=== PATIENT | female | born 1955 | race Caucasian/White ===

== ENCOUNTER 2017-03-30 11:11 | Emergency (ER) | payer SELFPAY ==
[~2017-03-30] VITALS: Ht 162.6 cm; Wt 100.0 kg
[~2017-03-30 11:11] MED LIST: CIPRO XR500 MG PO; DOXYCYCL HYC100 MG PO; NAPROSYN500 MG PO
[2017-03-30] MEDS ORDERED: EC-NAPROSYN500 MG PO (13:15)
[2017-03-30] MEDS ORDERED: TRAMADOL HYDROC50 MG PO (13:15)
[2017-03-30 13:19] VITALS: BP 140/82
== END 2017-03-30 13:23 | disposition home or self-care (01) | DRG 554 ==
LOC: ED 11:11
DX: M17.11 Unilateral primary osteoarthritis, right knee (principal); F17.210 Nicotine dependence, cigarettes, uncomplicated

== ENCOUNTER 2019-01-07 20:34 | Emergency (ER) | payer SELFPAY ==
[~2019-01-07] VITALS: Ht 162.6 cm; Wt 108.0 kg
[~2019-01-07 20:34] MED LIST changes: +EC-NAPROSYN500 MG PO; +TRAMADOL HYDROC50 MG PO
[2019-01-07] MEDS ORDERED: CYCLOBENZAPR5 MG PO (20:46)
[2019-01-07] MEDS ORDERED: LISINOPRIL5 MG PO (20:46)
[2019-01-07] MEDS ORDERED: DICLOFENAC SODI75 MG PO (20:47)
[2019-01-07] MEDS ORDERED: PREDNISONE50 MG PO (22:52)
[2019-01-07 23:15] VITALS: BP 117/68
== END 2019-01-07 23:16 | disposition home or self-care (01) | DRG 554 ==
LOC: ED 20:34
DX: M17.0 Bilateral primary osteoarthritis of knee (principal); M47.816 Spondylosis without myelopathy or radiculopathy, lumbar region; I10 Essential (primary) hypertension; F17.210 Nicotine dependence, cigarettes, uncomplicated

== ENCOUNTER 2019-01-24 23:17 | Observation (INO) | payer SELFPAY ==
[~2019-01-24] VITALS: Ht 162.6 cm; Wt 101.0 kg
[~2019-01-24 23:17] MED LIST changes: +CYCLOBENZAPR5 MG PO; +DICLOFENAC SODI75 MG PO; +LISINOPRIL5 MG PO; +PREDNISONE50 MG PO
--- NOTE | 2019-01-24 23:20 | NUR ---
PT BROUGHT VIA EMS, TRANSFERED TO [facility] W/OUT INCIDENT. PT WAS SEEN HERE APPROX 2 WEEKS AGO FOR GENERAL WEAKNESS IN LOWER EXTREMITIES. PT HAS HX OF HIP AND KNEE DETERIORATION. PT STATES SHE IMPROVED WITH THE USE OF STEROIDS BUT HAS NOW COMPLETED THEM. PT DESCRIBES SLIPPING FROM W/C AT HOME WHILE ATTEMPTING TO TRANSFER TO [facility].
--- NOTE | 2019-01-24 23:40 | NUR ---
MD AT BEDSIDE FOR EVALUATION
--- NOTE | 2019-01-25 00:02 | NUR ---
PT IS ALERT ORIENTED /PWD. RESP EASY REG. C/O LEG WEAKNESS AND INABILITY TO MOVE LEFT LEG. POSITIVE PULSES BILAT. EXT WARM TO TOUCH. UNABLE TO MOVE LEFT LEG. C/O INTERMITTENT SPASMS/SHARP PAINS DOWN LEFT LEG LIKE A LIGHTNING BOLT.
[2019-01-25 00:05] LABS: HEMATOCRIT 39.8 % (37.0-47.0); HEMOGLOBIN 13.2 g/dl (12.0-16.0); IMMATURE GRANULOCYTES 0.4 % (0.0-5.0); MEAN CELL VOLUME 95.9 fL CALC (80.0-100.0); MEAN CORPUSCULAR HGB 31.8 pG CALC (26.0-32.0); MEAN CORPUSCULAR HGB CONC 33.2 g/L CALC (32.0-36.0); NEUT# 5.31 thou/uL (2.00-7.15); RED BLOOD COUNT 4.15 mill/uL (4.20-5.60); RED CELL DISTRI WIDTH 12.8 % (11.5-15.5)
[2019-01-25 00:17] LABS: ALBUMIN 3.9 g/dL (3.2-5.0); ALKALINE PHOSPHATASE 98 u/l (38-126); ANION GAP 13 (6-22 (CALC)); BILIRUBIN, TOTAL 0.6 mg/dL (0.0-1.4); BUN 29 mg/dL (8-23); BUN/CREATININE RATIO 29 (12-20 (CALC)); CARBON DIOXIDE 23 mmol/l (22-30); CHLORIDE 106 mmol/l (95-108); GFR 56 ML/MIN (>=60 (CALC)); GFR FOR AFR.AMER. > 60 ML/MIN (>=60 (CALC)); POTASSIUM 4.1 mmol/l (3.5-5.1); SGOT/AST 17 u/l (9-36); SODIUM 138 mmol/l (137-146); TOTAL PROTEIN 6.2 g/dL (6.3-8.2)
--- NOTE | 2019-01-25 01:37 | NUR ---
TO CT VIA [facility]
--- NOTE | 2019-01-25 02:06 | NUR ---
RETURNED FROM CT VIA [facility]
--- NOTE | 2019-01-25 02:59 | NUR ---
REPORT TO RUBIN KUNZ
--- NOTE | 2019-01-25 03:07 | NUR ---
TO FLOOR VIA [facility]. TRANSFERRED TO BED WITH EZ SLIDE.
[2019-01-25 03:15] VITALS: BP 136/77
--- NOTE | 2019-01-25 03:15 | NUR ---
RECEIVED REPORT FROM NURSE CAMILA, PATIENT TRANSPORTED VIA BED, SETTLED IN BED, PATIENT ON 2 PERSON ASSIST WITH TRANSFER R/T WEAKNESS, WITH SALINE LOCK G 18 ON LAC PATENT AND FLUSHES WELL, PATIENT ORIENTED TO ROOM AND CALL LIGHT SYSTEM.
--- NOTE | 2019-01-25 07:15 | NUR ---
REPORT RECEIVED FROM RUBIN KERN;PT RESTING IN SEMI FOWLERS POSITION;INTRODUCED SELF TO PT AND POC DISCUSSED;RESPIRATIONS EVEN AND UNLABORED ON RA;PT DENIES ANY CURRENT PAIN OR NEEDS;TELE MONITORING IN PLACE;PT ENCOURAGED TO CALL FOR ASSISTANCE IF NEEDED;FALL PRECAUTIONS IN PLACE WITH BED IN THE LOWEST POSITION AND CALL LIGHT IN REACH;WILL CONTINUE TO MONITOR
[2019-01-25 08:47] VITALS: BP 130/81
--- NOTE | 2019-01-25 08:50 | NUR ---
PT RESTING IN SUPINE POSITION,A&O X3;VS OBTAINED AND ASSESSMENT COMPLETED;PT DENIES ANY CURRENT PAIN OR DISCOMFORTS,PAIN SCALE AND REPORTING EDUCATED;RESPIRATIONS EVEN AND UNLABORED ON RA,DIMINISHED LUNG SOUNDS NOTED;ABDOMEN DISTENDED/SOFT ON PALPATION AND ACTIVE IN ALL 4 QUADRANTS;STRONG PEDAL PULSES;SKIN INTACT;RASH NOTED TO ABDOMINAL AND BREAST FOLDS;EMS #18G TO LAC FLUSHED AND PATENT,SITE APPEARS HEALTHY;PT DENIES ANY ADDITIONAL NEEDS AT THIS TIME AND IS ENCOURAGED TO CALL FOR ASSISTANCE IF NEEDED;FALL PRECAUTIONS IN PLACE WITH CALL LIGHT IN REACH;WILL CONTINUE TO MONITOR
--- NOTE | 2019-01-25 09:00 | NUR ---
PHYSICAL THERAPY WORKING WITH PATIENT.
--- NOTE | 2019-01-25 10:21 | NUR ---
AT BEDSIDE DISCUSSING POC.
[2019-01-25 11:04] VITALS: BP 133/79
--- NOTE | 2019-01-25 11:40 | NUR ---
PT RESTING IN SUPINE POSITION;RESPIRATIONS EVEN AND UNLABORED ON RA;PT DENIES ANY CURRENT PAIN OR DISCOMFORTS;IV SITE TO LAC REMAINS PATENT;ALL SAFETY PRECAUTIONS IN PLACE WITH BED IN THE LOWEST POSITION AND CALL LIGHT IN REACH;WILL CONTINUE TO MONITOR
[2019-01-25 15:02] VITALS: BP 150/79
--- NOTE | 2019-01-25 16:45 | NUR ---
PT RESTING IN SUPINE POSITION;RESPIRATIONS EVEN AND UNLABORED ON RA;PT DENIES ANY CURRENT PAIN OR NEEDS;IV SITE TO LAC PATENT;PT DENIES ANY ADDITIONAL NEEDS AT THIS TIME AND IS ENCOURAGED TO CALL FOR ASSISTANCE IF NEEDED;FALL PRECAUTIONS IN PLACE WITH CALL LIGHT IN REACH;WILL CONTINUE TO MONITOR
--- NOTE | 2019-01-25 18:27 | NUR ---
NEW #22G STARTED TO RIGHT HAND ON FIRST ATTEMPT BY THIS WRITTER.FLUSHED AND PATENT; EMS IV SITE TO LAC REMOVED WITH CATHETER INTACT.
--- NOTE | 2019-01-25 19:22 | NUR ---
BEDSIDE REPORT RECEIVED, PT IN BED W/FAMILY AT BEDSIDE. NO S/O DISTRESS AND PT DENIES ANY NEEDS AT THIS TIME. PT ENCOURAGED TO CALL IF ANY NEEDS ARISE AND REMINDED OF CALL SYSTEM.
[2019-01-25 20:18] VITALS: BP 130/77
--- NOTE | 2019-01-25 22:38 | NUR ---
PT MEDICATED AND ASSESSED ORDERS PROVIDE. LUNG SOUNDS CL/DIM LOWER, ABD DIST SOFT/NON-TENDER W/ACITVE BOWEL SOUNDS. PT IS ABLE TO LEFT BLE JUST OFF THE BED W/DRIFT DOWN TO BED. WEAK AND LIMITED ROM IN BLE. STRONG SAMPLER TESTER ASSESSED. LOCX4. CLEAR SPEECH. WILL CONTINUE TO MONITOR.
--- NOTE | 2019-01-26 03:55 | NUR ---
PT ASSISTED ON BEDPAN AND OFF, PT PROVIDED ROSSY-CARE AND BEDDING CHANGED. PT DENIES ANY OTHER NEEDS OR ASSISTANCE. CALL LIGHT IS AT SIDE.
[2019-01-26 04:31] VITALS: BP 123/74
--- NOTE | 2019-01-26 07:20 | NUR ---
REPORT RECEIVED FROM RUBIN MOREAU;PT RESTING IN SUPINE POSITION;INTRODUCED SELF TO PT AND POC DISCUSSED;RESPIRATIONS EVEN AND UNLABORED ON RA;PT DENIES ANY CURRENT PAIN OR NEEDS;FALL PRECAUTIONS IN PLACE WITH BED IN THE LOWEST POSITION AND CALL LIGHT IN REACH;WILL CONTINUE TO MONITOR
[2019-01-26 09:14] VITALS: BP 140/67
--- NOTE | 2019-01-26 09:15 | NUR ---
PT RESTING IN SUPINE POSITION, A&O X3;VS OBTAINED AND ASSESSMENT COMPLETED;PT DENIES ANY CURRENT PAIN OR DISCOMFORTS,PAIN SCALE AND REPORTING EDUCATED;RESPIRATIONS EVEN AND UNLABORED ON RA,DIMINISHED LUNG SOUNDS;ABDOMEN DISTENDED/SOFT ON PALPATION AND ACTIVE IN ALL 4 QUADRANTS;STRONG PEDAL PULSES WITH TRACE EDEMA NOTED;REDDENING NOTED UNDER ABDOMINAL AND BREAST FOLDS, SKIN OTHERWISE INTACT;#22G TO RIGHT HAND FLUSHED AND PATENT,SITE APPEARS HEALTHY;PT DENIES ANY ADDITIONAL NEEDS AND IS ENCOURAGED TO CALL FOR ASSISTANCE IF NEEDED;FALL PRECAUTIONS IN PLACE WITH BED IN THE LOWEST POSITION AND CALL LIGHT IN REACH;WILL CONTINUE TO MONITOR
--- NOTE | 2019-01-26 11:14 | NUR ---
AT BEDSIDE DISCUSSING POC;RESPIRATIONS REMAIN EVEN AND UNLABORED ON RA;PT DENIES ANY CURRENT PAIN OR NEEDS;IV SITE TO RIGHT HAND PATENT;PT ENCOURAGED TO CALL FOR ASSISTANCE IF NEEDED;FALL PRECAUTIONS IN PLACE WITH CALL LIGHT IN REACH;WILL CONTINUE TO MONITOR
--- NOTE | 2019-01-26 13:07 | NUR ---
Pt was seen today for functional activity x 20 mins. Supine to sit with verbal cues on hand placement. Sit to stand with max assist of 1. Noted patient leaning back of legs on edge of bed. Tolerated static standing position for <30 seconds before requesting to be sat down. Pt then did STS x 5 reps with mod assist. She was given max assist to transfer from bed to [facility]. Noted instability on B LE, patient reports the same. She was unable to take a step as she was scared of her legs giving way. Pt has not been walking for a month and only been using a wheelchair to ambulate. She requested some time in the commode. Handed the call chaves to her and instructed to call the nurse when she finished. Pt agreed. AMPAC score unchanged.
[2019-01-26 15:53] VITALS: BP 142/82
--- NOTE | 2019-01-26 16:00 | NUR ---
PT RESTING IN SUPINE POSITION;RESPIRATIONS EVEN AND UNLABORED ON RA;PT DENIES ANY CURRENT PAIN OR NEEDS;IV SITE TO RIGHT HAND REMOVED WITH CATHETER INTACT;ALL DISCHARGE INSTRUCTIONS PROVIDED AND QUESTIONS ANSWERED;PT DENIES ANY ADDITIONAL NEEDS AT THIS TIME;[facility] CALLED AND TO ARRIVE FOR TRANSPORTATION HOME;WHEELCHAIR TO BE PROVIDED FOR D/C.
--- NOTE | 2019-01-26 16:07 | NUR ---
Discharge instructions given. Patient verbalizes understanding of same. Discharged in stable condition via Wheelchair to Home with *Other. All belongings sent with pt. Pt transported by [facility] home in stable condition.
== END 2019-01-26 16:07 | disposition home or self-care (01) | DRG 948 ==
LOC: ED 23:17 → ED-I 01-25 02:20 → ED 01-25 02:36 → MS2 01-25 02:37
PROVIDERS: Emergency Medicine; ADMIT Internal Medicine; ATTEND Internal Medicine
DX: R53.1 Weakness (principal); I10 Essential (primary) hypertension; F41.1 Generalized anxiety disorder; F32.9 Major depressive disorder, single episode, unspecified; M19.90 Unspecified osteoarthritis, unspecified site; F17.200 Nicotine dependence, unspecified, uncomplicated
CPT/HCPCS: G0378

== ENCOUNTER 2019-06-30 11:08 | Emergency (ER) | payer MEDICAID ==
[~2019-06-30] VITALS: Ht 162.6 cm; Wt 100.0 kg
[2019-06-30] MEDS ORDERED: BACLOFEN10 MG PO (11:24)
[2019-06-30] MEDS ORDERED: [UNRECOGNIZED DRUG - OTHER] (11:25)
[2019-06-30] MEDS ORDERED: COUMADIN2 MG PO (11:26)
[2019-06-30] MEDS ORDERED: CYANOCOBAL1000 MCG/M IM (11:27)
[2019-06-30 11:59] LABS: HEMATOCRIT 35.3 % (37.0-47.0); HEMOGLOBIN 11.4 g/dl (12.0-16.0); IMMATURE GRANULOCYTES 0.4 % (0.0-5.0); MEAN CELL VOLUME 91.7 fL CALC (80.0-100.0); MEAN CORPUSCULAR HGB 29.6 pG CALC (26.0-32.0); MEAN CORPUSCULAR HGB CONC 32.3 g/L CALC (32.0-36.0); NEUT# 2.72 thou/uL (2.00-7.15); RED BLOOD COUNT 3.85 mill/uL (4.20-5.60); RED CELL DISTRI WIDTH 13.3 % (11.5-15.5)
[2019-06-30 12:10] LABS: ALBUMIN 3.5 g/dL (3.2-5.0); ALKALINE PHOSPHATASE 84 u/l (38-126); ANION GAP 11 (6-22 (CALC)); BILIRUBIN, TOTAL 0.4 mg/dL (0.0-1.4); BUN 20 mg/dL (8-23); BUN/CREATININE RATIO 29 (12-20 (CALC)); CHLORIDE 101 mmol/l (95-108); CREATININE 0.7 mg/dL (0.5-1.0); GFR > 60 ML/MIN (>=60 (CALC)); GFR FOR AFR.AMER. > 60 ML/MIN (>=60 (CALC)); LIPASE 36 u/l (23-300); MAGNESIUM 1.6 mg/dL (1.6-2.3); POTASSIUM 4.1 mmol/l (3.5-5.1); SGOT/AST 28 u/l (9-36); SODIUM 137 mmol/l (137-146); TOTAL PROTEIN 6.4 g/dL (6.3-8.2)
[2019-06-30 12:22] LABS: CARBON DIOXIDE 29 mmol/l (22-30)
[2019-06-30 12:56] LABS: URINE BILIRUBIN - DIPSTICK NEGATIVE (NEGATIVE); URINE BLOOD DIPSTICK TRACE-INTACT (NEGATIVE); URINE COLOR YELLOW; URINE GLUCOSE - DIPSTICK NEGATIVE (NEGATIVE); URINE KETONE NEGATIVE (NEGATIVE); URINE LEUK ESTERASE TRACE (NEGATIVE); URINE NITRITE - DIPSTICK NEGATIVE (Negative); URINE PH 5.5 (4.5-8.0); URINE PROTEIN - DIPSTICK NEGATIVE (NEG-TRACE); URINE SPECIFIC GRAVITY 1.015; URINE UROBILINOGEN - DIPSTICK 0.2 E.U./dL (0.2)
[2019-06-30] MEDS ORDERED: PROAIR HFA108 MCG/AC IN (15:01)
[2019-06-30] MEDS ORDERED: ZOFRAN4 M1 PO (15:01)
[2019-06-30] MEDS ORDERED: CLEOCIN300 MG PO (15:01)
[2019-06-30 16:06] VITALS: BP 106/58
== END 2019-06-30 16:06 | disposition home or self-care (01) ==
LOC: ED 11:08 → ED-I 13:10 → ED 16:06
DX: J02.0 Streptococcal pharyngitis (principal); J40 Bronchitis, not specified as acute or chronic; R11.2 Nausea with vomiting, unspecified; G82.20 Paraplegia, unspecified; I10 Essential (primary) hypertension; I48.91 Unspecified atrial fibrillation; F17.200 Nicotine dependence, unspecified, uncomplicated; Z98.890 Other specified postprocedural states

== ENCOUNTER 2019-07-06 13:41 | Emergency (ER) | payer MEDICAID ==
[~2019-07-06] VITALS: Ht 162.6 cm; Wt 95.0 kg
[~2019-07-06 13:41] MED LIST changes: +BACLOFEN10 MG PO; +CLEOCIN300 MG PO; +COUMADIN2 MG PO; +CYANOCOBAL1000 MCG/M IM; +PROAIR HFA108 MCG/AC IN; +ZOFRAN4 M1 PO; +[UNRECOGNIZED DRUG - OTHER]
[2019-07-06 14:02] LABS: HEMATOCRIT 38.2 % (37.0-47.0); HEMOGLOBIN 12.3 g/dl (12.0-16.0); IMMATURE GRANULOCYTES 0.3 % (0.0-5.0); MEAN CELL VOLUME 91.8 fL CALC (80.0-100.0); MEAN CORPUSCULAR HGB 29.6 pG CALC (26.0-32.0); MEAN CORPUSCULAR HGB CONC 32.2 g/L CALC (32.0-36.0); NEUT# 5.65 thou/uL (2.00-7.15); RED BLOOD COUNT 4.16 mill/uL (4.20-5.60); RED CELL DISTRI WIDTH 13.7 % (11.5-15.5)
[2019-07-06 14:42] LABS: ALBUMIN 3.6 g/dL (3.2-5.0); ALKALINE PHOSPHATASE 92 u/l (38-126); ANION GAP 12 (6-22 (CALC)); BILIRUBIN, TOTAL 0.4 mg/dL (0.0-1.4); BUN 25 mg/dL (8-23); BUN/CREATININE RATIO 28 (12-20 (CALC)); CARBON DIOXIDE 30 mmol/l (22-30); CHLORIDE 99 mmol/l (95-108); CREATININE 0.9 mg/dL (0.5-1.0); GFR > 60 ML/MIN (>=60 (CALC)); GFR FOR AFR.AMER. > 60 ML/MIN (>=60 (CALC)); POTASSIUM 4.3 mmol/l (3.5-5.1); SGOT/AST 19 u/l (9-36); SODIUM 136 mmol/l (137-146); TOTAL PROTEIN 6.4 g/dL (6.3-8.2)
[2019-07-06 14:50] LABS: PROTHROMBIN TIME 85.5 SECONDS (9.0-12.5)
[2019-07-06] MEDS ORDERED: FOLIC ACID1 MG PO (15:27)
[2019-07-06] MEDS ORDERED: FUROSEMIDE20 MG PO (15:27)
[2019-07-06] MEDS ORDERED: GABAPENTIN300 M2 PO (15:28)
[2019-07-06] MEDS ORDERED: MELATONIN3 MG PO (15:29)
[2019-07-06] MEDS ORDERED: METOPROL TAR25 M1 PO (15:29)
[2019-07-06] MEDS ORDERED: PROTONIX40 M2 PO (15:30)
[2019-07-06] MEDS ORDERED: WARFARIN3 MG PO (15:31)
[2019-07-06] MEDS ORDERED: POTASSIUM CHLO10 MEQ PO (15:31)
[2019-07-06] MEDS ORDERED: EQL STOOL SOFT100 MG PO (15:32)
[2019-07-06 15:36] VITALS: BP 98/57
== END 2019-07-06 16:08 | disposition home or self-care (01) ==
LOC: ED 13:41
PROVIDERS: Family Medicine
DX: R79.1 Abnormal coagulation profile (principal); I10 Essential (primary) hypertension; I48.91 Unspecified atrial fibrillation

== ENCOUNTER 2021-08-08 09:57 | Emergency (ER) | payer OTHER ==
[~2021-08-08] VITALS: Ht 162.6 cm; Wt 136.4 kg
[~2021-08-08 09:57] MED LIST changes: +EQL STOOL SOFT100 MG PO; +FOLIC ACID1 MG PO; +FUROSEMIDE20 MG PO; +GABAPENTIN300 M2 PO; +MELATONIN3 MG PO; +METOPROL TAR25 M1 PO; +POTASSIUM CHLO10 MEQ PO; +PROTONIX40 M2 PO; +WARFARIN3 MG PO
[2021-08-08 10:44] LABS: HEMOGLOBIN 12.4 g/dl (12.0-16.0); IMMATURE GRANULOCYTES 0.5 % (0.0-5.0); MEAN CORPUSCULAR HGB 27.9 pG CALC (26.0-32.0); MEAN CORPUSCULAR HGB CONC 27.7 g/dL CAL (32.0-36.0); NEUT# 4.71 thou/uL (2.00-7.15); RED BLOOD COUNT 4.44 mill/uL (4.20-5.60); RED CELL DISTRI WIDTH 15.4 % (11.5-15.5)
[2021-08-08 10:46] LABS: HEMATOCRIT 44.7 % (37.0-47.0); MEAN CELL VOLUME 100.7 fL CALC (80.0-100.0)
[2021-08-08 11:08] LABS: ALBUMIN 3.4 g/dL (3.2-5.0); ALKALINE PHOSPHATASE 113 u/l (38-126); BUN 21 mg/dL (8-23); BUN/CREATININE RATIO 27 (12-20 (CALC)); CHLORIDE 94 mmol/l (95-108); CREATININE 0.8 mg/dL (0.5-1.0); GFR > 60 ML/MIN (>=60 (CALC)); GFR FOR AFR.AMER. > 60 ML/MIN (>=60 (CALC)); LIPASE 26 u/l (23-300); POTASSIUM 4.5 mmol/l (3.5-5.1); SGOT/AST 18 u/l (9-36); SODIUM 140 mmol/l (137-146); TOTAL PROTEIN 6.7 g/dL (6.3-8.2)
[2021-08-08 11:21] LABS: ANION GAP 6 (6-22 (CALC)); BILIRUBIN, TOTAL 0.7 mg/dL (0.0-1.4); CARBON DIOXIDE 45 mmol/l (22-30); MAGNESIUM 2.1 mg/dL (1.6-2.3)
[2021-08-08 11:42] LABS: TSH, 3RD GENERATION 0.11 uIU/mL (0.47 - 4.68)
[2021-08-08] MEDS ORDERED: TYLENOL325 M2 PO (12:08)
[2021-08-08] MEDS ORDERED: ALBUTEROL SUL0.083 % IN (12:09)
[2021-08-08] MEDS ORDERED: BACLOFEN10 MG PO (13:10)
[2021-08-08] MEDS ORDERED: ASCORBIC ACD500 MG PO (13:11)
[2021-08-08] MEDS ORDERED: AZELASTINE HYDR1 SPR (13:12)
[2021-08-08] MEDS ORDERED: BIOTIN MAXI10000 MC1 PO (13:13)
[2021-08-08] MEDS ORDERED: [UNRECOGNIZED DRUG - CODE] TOP (13:15)
[2021-08-08] MEDS ORDERED: DULCOLAX10 MG RE (13:15)
[2021-08-08 13:36] VITALS: BP 152/73
[2021-08-09] MEDS ORDERED: FLONASE AL50 MCG/ACT NAB (15:39)
[2021-08-09] MEDS ORDERED: LINZESS145 MCG PO (16:07)
[2021-08-09] MEDS ORDERED: LORATADINE10 M1 PO (16:09)
[2021-08-09] MEDS ORDERED: POLY GLYCOL3350 MG PO (16:10)
[2021-08-09] MEDS ORDERED: SINGULAIR10 MG PO (16:11)
[2021-08-09] MEDS ORDERED: XARELTO10 MG PO (16:13)
[2021-08-09] MEDS ORDERED: ZINC50 M1 PO (16:15)
[2021-08-09] MEDS ORDERED: AZELASTINE HYDR1 SPR NAB (16:16)
[2021-08-09] MEDS ORDERED: BACLOFEN10 MG PO (16:21)
[2021-08-09] MEDS ORDERED: GABAPENTIN100 MG PO (16:24)
== END 2021-08-08 13:36 | disposition home or self-care (01) ==
LOC: ED 09:57
PROVIDERS: Emergency Medicine
DX: G47.34 Idiopathic sleep related nonobstructive alveolar hypoventilation (principal); G82.20 Paraplegia, unspecified; I10 Essential (primary) hypertension; I48.91 Unspecified atrial fibrillation; K21.9 Gastro-esophageal reflux disease without esophagitis; G83.4 Cauda equina syndrome; Z79.01 Long term (current) use of anticoagulants; Z86.711 Personal history of pulmonary embolism; Z95.828 Presence of other vascular implants and grafts; Z74.01 Bed confinement status; Z99.81 Dependence on supplemental oxygen; Z20.822 Contact with and (suspected) exposure to COVID-19
CPT/HCPCS: Q9967

== ENCOUNTER 2021-08-09 14:31 | Observation (INO) | payer OTHER ==
[~2021-08-09] VITALS: Ht 162.6 cm; Wt 145.0 kg
[~2021-08-09 14:31] MED LIST changes: +ALBUTEROL SUL0.083 % IN; +ASCORBIC ACD500 MG PO; +AZELASTINE HYDR1 SPR; +BIOTIN MAXI10000 MC1 PO; +DULCOLAX10 MG RE; +TYLENOL325 M2 PO; +[UNRECOGNIZED DRUG - CODE] TOP
--- NOTE | 2021-08-09 14:31 | NUR ---
PT TO ROOM 11 VIA EMS ON NONREBREATHER
--- NOTE | 2021-08-09 14:35 | NUR ---
GAG REFLEX PRESENT. PATIENT PLACED ON BIPAP.
--- NOTE | 2021-08-09 14:40 | NUR ---
REPORT RECEIVED FROM EMS: BS 110, SINUS TACH ON FOUR LEAD
--- NOTE | 2021-08-09 14:45 | NUR ---
UNABLE TO OBTAIN IV ACCESS. DR TAYLOR PLACED TWIN CATH VIA ULTRASOUND WITH NO DIFFICULTY.
--- NOTE | 2021-08-09 15:04 | NUR ---
PORTABLE X-RAY BEING COMPLETED, PT ABLE TO OBEY COMMANDS. PT REMAINS ON BIPAP. PT'S EYES CLOSED. WILL CONTINUE TO MONITOR.
[2021-08-09 15:07] LABS: HEMATOCRIT 46.7 % (37.0-47.0); IMMATURE GRANULOCYTES 0.6 % (0.0-5.0); MEAN CELL VOLUME 102.2 fL CALC (80.0-100.0); MEAN CORPUSCULAR HGB 28.4 pG CALC (26.0-32.0); MEAN CORPUSCULAR HGB CONC 27.8 g/dL CAL (32.0-36.0); NEUT# 7.57 thou/uL (2.00-7.15); RED BLOOD COUNT 4.57 mill/uL (4.20-5.60); RED CELL DISTRI WIDTH 15.4 % (11.5-15.5)
[2021-08-09 15:08] LABS: URINE BILIRUBIN - DIPSTICK NEGATIVE (NEGATIVE); URINE BLOOD DIPSTICK LARGE (NEGATIVE); URINE GLUCOSE - DIPSTICK 100 mg/dL (NEGATIVE); URINE KETONE TRACE mg/dL (NEGATIVE); URINE PH 6.5 (4.5-8.0); URINE PROTEIN - DIPSTICK >=300 mg/dL (NEG-TRACE); URINE SPECIFIC GRAVITY >=1.030
--- NOTE | 2021-08-09 15:09 | NUR ---
PT ABLE TO SPEAK AND ALERT AND ORIENTED X3. DR TAYLOR IN TO SPEAK WITH PT. PT REMEMBERS BEING HERE YESTERDAY. PT EDUCATED ON BECOMING HPOXIC AND THE NEED FOR HER SLEEP STUDY. PT VERBALIZES THAT SHE AGREES AND REPORTS DIFFICULTY DUE TO INSURANCE. PT EDUCATED ON THE URGENCY OF NEEDING TO FOLLOW UP AND ADDRESS RESPIRATORY NEEDS. PT REMAINS ON BIPAP, VSS. WILL CONTINUE TO MONITOR.
[2021-08-09 15:10] LABS: URINE LEUK ESTERASE SMALL (NEGATIVE); URINE NITRITE - DIPSTICK POSITIVE (Negative)
[2021-08-09 15:11] LABS: URINE BACTERIA MANY hpf; URINE COLOR RED; URINE RBC TNTC RBC/hpf (0-5); URINE SQUAMOUS EPITHELIAL CELL MODERATE EPI/hpf (0-FEW)
--- NOTE | 2021-08-09 15:18 | NUR ---
PT PLACED ON NIV PER MD ORDER. ABG DRAWN. REPEATE ABG IN 1 HOUR. PT A/O AND REPONDING WELL, AND AROUSABLE.
--- NOTE | 2021-08-09 15:20 | NUR ---
SPOKE WITH PT'S DAUGHTER, BRETT AND GAVE REPORT OF PT'S CONDITION AND PLAN OF CARE WITH PT'S PERMISSION. SIOBHAN STATES THAT HER SISTER, PALLAVI WILL ARRIVE AT THE HOSPITAL IN APPROX 30 MIN. PT AWARE OF CONVERSATION. PT STABLE AT THIS TIME.
[2021-08-09 15:22] LABS: ALBUMIN 3.7 g/dL (3.2-5.0); ALKALINE PHOSPHATASE 125 u/l (38-126); BILIRUBIN, TOTAL 0.7 mg/dL (0.0-1.4); BUN 23 mg/dL (8-23); BUN/CREATININE RATIO 30 (12-20 (CALC)); CHLORIDE 92 mmol/l (95-108); CREATININE 0.8 mg/dL (0.5-1.0); GFR > 60 ML/MIN (>=60 (CALC)); GFR FOR AFR.AMER. > 60 ML/MIN (>=60 (CALC)); LIPASE 85 u/l (23-300); SGOT/AST 22 u/l (9-36); SODIUM 139 mmol/l (137-146); TOTAL PROTEIN 7.5 g/dL (6.3-8.2)
[2021-08-09 15:25] LABS: INTERNATIONAL NORMALIZED RATIO 1.5 RATIO (0.7-1.3); PROTHROMBIN TIME 14.9 SECONDS (9.0-12.5)
[2021-08-09 15:34] LABS: MYOGLOBIN 18 ng/mL (0 - 62)
[2021-08-09 15:35] LABS: ANION GAP 6 (6-22 (CALC)); POTASSIUM 5.2 mmol/l (3.5-5.1)
[2021-08-09 15:36] LABS: CARBON DIOXIDE 46 mmol/l (22-30)
[2021-08-09] MEDS ORDERED: FLONASE AL50 MCG/ACT NAB (15:39)
--- NOTE | 2021-08-09 15:42 | NUR ---
PT BECOMES HYPOTENSIVE, DR TAYLOR NOTIFIED. PT POSITIONED SUPINE WITH HOB LOWERED AND NORMAL SALINE 1LITER BOLUS INITIATED. RUNNING VIA GRAVITY. BP CUFF REPOSITIONED. BP IMPROVED. PT REMAINS ALERT AND TALKING. PT STABLE.
[2021-08-09] MEDS ORDERED: LINZESS145 MCG PO (16:07)
[2021-08-09] MEDS ORDERED: LORATADINE10 M1 PO (16:09)
[2021-08-09] MEDS ORDERED: POLY GLYCOL3350 MG PO (16:10)
[2021-08-09] MEDS ORDERED: SINGULAIR10 MG PO (16:11)
[2021-08-09] MEDS ORDERED: XARELTO10 MG PO (16:13)
[2021-08-09] MEDS ORDERED: ZINC50 M1 PO (16:15)
[2021-08-09] MEDS ORDERED: AZELASTINE HYDR1 SPR NAB (16:16)
[2021-08-09] MEDS ORDERED: BACLOFEN10 MG PO (16:21)
[2021-08-09] MEDS ORDERED: GABAPENTIN100 MG PO (16:24)
[2021-08-09 16:35] VITALS: BP 139/75
--- NOTE | 2021-08-09 16:38 | NUR ---
PT DIFFICULT TO WAKEN, PT WILL OPEN EYES TO PAINFUL STIMULI, IN TO SEE. PT'S SISTER, MILI PRESENT AND INFORMED OF PLAN TO INTUBATE.
--- NOTE | 2021-08-09 16:50 | NUR ---
DR TAYLOR AND ROBIN RT AT BEDSIDE TO ATTEMPT TO INTUBATE. 20 MG OF ETOMIDATE, IVP AT 1650 BY EDP 120 MG OF SUCCS IVP AT 1651 BY EDP.
--- NOTE | 2021-08-09 16:51 | NUR ---
DR TAYLOR ATTEMPTED TO INTUBATE WITH 7.5 ET TUBE. NO COLOR CHANGE NOTED BUT CONDENSATION NOTED TO ET TUBE. PATIENT WAS BEING BAGGED AT THIS TIME SPO2 SUSTAINING AT 95% BVM. UNABLE TO AUSCULTATE LUNG SOUNDS. TUBE WAS REMOVED AND SECOND ATTEMPT MADE AT 1656.
--- NOTE | 2021-08-09 16:57 | NUR ---
UNABLE TO AUSCULTATE LUNG SOUNDS. ATTEMPTING TO TAKE XRAY TO CONFIRM PLACEMENT OF ET TUBE. SPO2 48% WITH BVM. ABD DISTENDED.
--- NOTE | 2021-08-09 17:00 | NUR ---
DR TAYLOR ATTEMPTING TO PLACE LMA WITH NO SUCCESS. BLOODY SPUTUM SUCTIONED FROM MOUTH.
--- NOTE | 2021-08-09 17:10 | NUR ---
NG TUBE PLACEMENT ATTEMPTED BY SEVERAL STAFF MEMBERS WITH NO SUCCESS. DR TAYLOR NOTIFIED THAT UNABLE TO PALPATE PULSES. [address] TAYLOR TO PLACE NG TUBE. BLEEDING FROM BILATERAL NARES NOTED.
--- NOTE | 2021-08-09 17:10 | NUR ---
NUMEROUS ATTEMPTS BY DR TAYLOR TO PLACE ET TUBES AND LMAS OF DIFFERENT SIZES WITH NO SUCCESS DURING THIS TIME. PATIENT ABD GREATLY DISTENDED. SPO2 IN THE 40'S.
--- NOTE | 2021-08-09 17:13 | NUR ---
DR TAYLOR NOW ATTEMPTING TO PLACE LMA PATIENT CLAMPING DOWN AND DR TAYLOR INSTRUCTED TO GIVE 20 MG OF SUCCS AND 10 MG ROCURONIUM. MONITOR SHOWING HEART RATE 57. FEMORAL PULSES WERE UNABLE TO BE PALPATED. NOTIFIED AND [facility] SALGADO WAS CALLED. COMPRESSIONS INITIATED AT 1717.
--- NOTE | 2021-08-09 17:19 | NUR ---
ANOTHER ATTEMPT MADE TO PLACE ET TUBE, TUBE WAS PLACED BUT BREATH SOUNDS WERE UNABLE TO BE AUSCULTATED. PATIENT WAS BEING BAGGED. DURING THIS TIME COMPRESSIONS WERE BEING DONE INTERMITTENTLY WHILE DR TAYLOR WAS CONTINUING TO ATTEMPT TO INTUBATE. EPI 1 MG GIVEN AT 1723 ATROPINE 0.5 MG GIVEN AT 1724 DR TAYLOR PREPARING TO PERFORM A CRIC. 1728 1 MG OF EPI GIVEN IVP 1730 DR KNOWLES AT BEDSIDE TO ASSIST WITH OBTAINING AN AIRWAY. PATIENT REMAINS IN PEA. 1735 1 MG OF EPI IVP BOTH DR TAYLOR AND DR KNOWLES ATTEMPTING A CRIC BUT UNABLE TO PLACE. PATIENT REMAINS IN PEA.
--- NOTE | 2021-08-09 17:51 | NUR ---
NO CARDIAC ACTIVITY NOTED BY DR TAYLOR VIA ULTRASOUND.
--- NOTE | 2021-08-09 17:51 | NUR ---
SEE CODE SHEET.
--- NOTE | 2021-08-09 18:00 | NUR ---
DR TAYLOR AND JOI RN SPEAKING WITH FAMILY.
--- NOTE | 2021-08-09 20:00 | NUR ---
AWAITING FAMILY TO ARRIVE TO DECIDE HOME ARRANGEMENTS.
--- NOTE | 2021-08-09 23:02 | NUR ---
Thi Ellis here for transport to home.
== END 2021-08-09 17:51 | disposition expired ==
LOC: ED 14:31 → ED-I 15:00 → ED 15:23 → ICU 15:24
PROVIDERS: Emergency Medicine; ADMIT Hospitalist; ATTEND Hospitalist
DX: J96.02 Acute respiratory failure with hypercapnia (principal); J96.01 Acute respiratory failure with hypoxia; G83.4 Cauda equina syndrome; G82.20 Paraplegia, unspecified; I10 Essential (primary) hypertension; I48.91 Unspecified atrial fibrillation; K21.9 Gastro-esophageal reflux disease without esophagitis; G25.81 Restless legs syndrome; G47.30 Sleep apnea, unspecified; Z99.81 Dependence on supplemental oxygen; Z86.711 Personal history of pulmonary embolism